=== PATIENT | male | born 1945 | race Caucasian/White ===

== ENCOUNTER 2023-06-18 09:08 | Outpatient (OUT) | payer MEDICARE, OTHER, SELFPAY ==
--- NOTE | 2023-06-18 | XR_ITS ---
The [place] [id number] Patient Name: DAMARI MCGILL MRN: [id number] date: 1945 Sex: M Assigned Patient Location: [facility] Current Patient Location: [facility] Accession/Order Number: [id number] Exam Date: 06/18/2023 09:50 Report Date: 06/18/2023 16:13 At the request of: EARLENE SANTOS Procedure: XR foot CAMPBELL min 3V EXAMINATION: XR ankle CAMPBELL min 3V, XR foot CAMPBELL min 3V HISTORY: Bilateral ankle pain COMPARISON: No relevant comparison available. FINDINGS: RIGHT FINDINGS: BONES: Mild narrowing of the ankle joint space and small degenerative ossified along the anterior articular margin. Marked flattening of plantar arch. No fracture or dislocation. SOFT TISSUES: Marked atherosclerotic disease. OTHER: Negative. LEFT FINDINGS: BONES: Mild narrowing of the ankle joint space and suspected slight remodeling of the talar dome. Complete loss of plantar arch. No fracture or dislocation. SOFT TISSUES: Marked atherosclerotic disease. OTHER: Negative. XR/XR foot CAMPBELL min 3V IMPRESSION: RIGHT CONCLUSION: 1. Mild/moderate degenerative changes ankle joint. 2. 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 LEFT CONCLUSION: 1. Moderate degenerative changes of the ankle joint. 2. 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 Electronically authenticated by: WICHO SEGAL Date: 06/18/2023 16:13
--- NOTE | 2023-06-18 | XR_ITS ---
The [address] [address] Patient Name: DAMARI MCGILL MRN: [id number] date: 1945 Sex: M Assigned Patient Location: [facility] Current Patient Location: [facility] Accession/Order Number: [id number] Exam Date: 06/18/2023 09:50 Report Date: 06/18/2023 16:13 At the request of: EARLENE SANTOS Procedure: XR ankle CAMPBELL min 3V EXAMINATION: XR ankle CAMPBELL min 3V, XR foot CAMPBELL min 3V HISTORY: Bilateral ankle pain COMPARISON: No relevant comparison available. FINDINGS: RIGHT FINDINGS: BONES: Mild narrowing of the ankle joint space and small degenerative ossified along the anterior articular margin. Marked flattening of plantar arch. No fracture or dislocation. SOFT TISSUES: Marked atherosclerotic disease. OTHER: Negative. LEFT FINDINGS: BONES: Mild narrowing of the ankle joint space and suspected slight remodeling of the talar dome. Complete loss of plantar arch. No fracture or dislocation. SOFT TISSUES: Marked atherosclerotic disease. OTHER: Negative. XR/XR ankle CAMPBELL min 3V IMPRESSION: RIGHT CONCLUSION: 1. Mild/moderate degenerative changes ankle joint. 2. 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 LEFT CONCLUSION: 1. Moderate degenerative changes of the ankle joint. 2. 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 Electronically authenticated by: WICHO SEGAL Date: 06/18/2023 16:13
== END 2023-06-18 09:09 | disposition home or self-care (01) ==
LOC: RAD 09:11
PROVIDERS: Visit Provider Podiatrist Foot & Ankle Surgery
DX: M25.572 Pain in left ankle and joints of left foot (principal); M25.571 Pain in right ankle and joints of right foot
CPT/HCPCS: 73610; 73630